=== PATIENT | female | born 1990 | race Hispanic/Latino ===

== ENCOUNTER 2019-03-19 19:58 | Outpatient (CLI) | payer OTHER ==
[2019-03-19 20:49] VITALS: BP 116/77
[2019-03-19] MEDS ORDERED: VISTARIL PO ONE (22:00)
== END 2019-03-19 21:29 | disposition home or self-care (01) ==
LOC: TRG 19:58
PROVIDERS: ATTEND Obstetrics & Gynecology
DX: O47.1 False labor at or after 37 completed weeks of gestation (principal); Z3A.38 38 weeks gestation of pregnancy; Z87.891 Personal history of nicotine dependence
CPT/HCPCS: Q0177

== ENCOUNTER 2019-03-21 09:55 | Inpatient (IN) | payer OTHER ==
[2019-03-21] MEDS ORDERED: BRETHINE IVP PRN (10:08)
[2019-03-21] MEDS ORDERED: MINERAL OIL PO PRN (10:08)
[2019-03-21] MEDS ORDERED: SUBLIMAZE IV PRN (10:08)
[2019-03-21] MEDS ORDERED: BRETHINE SUB-Q PRN (10:08)
[2019-03-21] MEDS ORDERED: XYLOCAINE 2% INFILTRATI ONE (10:08)
[2019-03-21] MEDS ORDERED: STADOL IV PRN (10:08)
[2019-03-21] MEDS ORDERED: ZOFRAN IV PRN (10:08)
[2019-03-21 10:39] LABS: Hematocrit 36.9 % (30.3-42.9); Hemoglobin 12.3 gm/dl (10.1-14.3); Mean Corpuscular HGB Conc 33 % (30-34); Mean Corpuscular Volume 93 fl (79-97); Platelet Count 273 K/mm3 (140-440); Red Blood Count 3.98 M/mm3 (3.65-5.03)
--- NOTE | 2019-03-21 10:42 | History and Physical Report ---
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 Infection History Hx of STD: none HIV Risk Eval: low risk Hepatitis B Risk Eval: low risk Personal hx. of genital herpes: no Partner hx. of genital herpes: no Rash, Viral, or Febrile illness since last LMP? no Varicella/Chicken Pox Status: Previous Disease Genetic History Congenital Heart Defect: Mom: no Dad: no Jo Disease: Mom: no Dad: no Thalassemia Mom: no Dad: no Neural Tube Defect Mom: no Dad: no Down's Syndrome Mom: no Dad: no Jacob-Sachs Mom: no Dad: no Sickle Cell Disease/Trait Mom: no Dad: no Hemophilia Mom: no Dad: no Muscular Dystrophy Mom: no Dad: no Cystic Fibrosis Mom: no Dad: no [place] Chorea Mom: no Dad: no Mental Retardation Mom: no Dad: no Fragile X Mom: no Dad: no Other Genetic/Chromosomal Disorder Mom: no Dad: no Child w/other defect Mom: no Dad: no Enviromental Exposures Xray Exposure: no Medication, drug, or alcohol use since LMP: no Chemical/Other Exposure: no Exposure to Cat Liter: yes Hx of Parvovirus (Fifth Disease): no Occupational Exposure to Children: none Active Medications (reviewed today): None Current Allergies (reviewed today): KEFLEX (Critical) Past History - Obstetrical History Expected Date of Delivery: 03/31/19 Actual Gestation: 38 Week(s) 4 Day(s) : 2 Para: 1 Hx # Term Pregnancies: 1 Number of Pregnancies: 0 Spontaneous Abortions: 0 Induced : 0 Number of Living Children: 1 Medications and Allergies Allergies Allergy/AdvReac Type Severity Reaction Status Date / Time sumatriptan [From Imitrex] Allergy Dizziness Verified 03/19/19 20:50 cephalexin [From Keflex] AdvReac Hives Verified 03/19/19 20:50 Active Meds: Active Medications Butorphanol Tartrate (Stadol) 2 mg IV Q2H PRN PRN Reason: Pain , Severe (7-10) Ephedrine Sulfate (Ephedrine Sulfate) 10 mg IV Q2M PRN PRN Reason: Hypotension Fentanyl (Sublimaze) 100 mcg IV Q2H PRN PRN Reason: Labor Pain Lactated Ringer's (Lactated Ringers) 1,000 mls @ 125 mls/hr IV DIRECT BEN Oxytocin/Sodium Chloride (Pitocin/Ns 20 Unit/1000ml Drip) 20 units in 1,000 mls @ 125 mls/hr IV DIRECT BEN Oxytocin/Sodium Chloride (Pitocin/Ns 30 Unit/500ml) 30 units in 500 mls @ 4 mls/hr IV Q30MIN BEN; Protocol Lidocaine (Xylocaine 2%) 20 ml INFILTRATI ONCE ONE Stop: 03/21/19 10:09 Mineral Oil (Mineral Oil) 30 ml PO QHS PRN PRN Reason: Constipation Ondansetron HCl (Zofran) 4 mg IV Q8H PRN PRN Reason: Nausea And Vomiting Terbutaline Sulfate (Brethine) 0.25 mg SUB-Q ONCE PRN PRN Reason: Hyperstimulation/Hypertonicity Terbutaline Sulfate (Brethine) 0.25 mg IVP ONCE PRN PRN Reason: Hyperstimulation/Hypertonicity - Vital Signs Vital signs: Vital Signs Pulse BP 84 127/79 03/21/19 10:26 03/21/19 10:26 Temp Pulse Resp BP Pulse Ox 98 F 84 20 127/79 03/21/19 10:27 03/21/19 10:26 03/21/19 10:27 03/21/19 10:26 - Physical Exam Breasts: Positive: deferred Cardiovascular: Regular rate Lungs: Positive: Normal air movement Abdomen: Positive: normal appearance, soft Genitourinary (Female): Positive: normal external genitalia Vagina: Positive: normal moisture Uterus: Positive: normal size Extremities: Positive: normal Deep Tendon Reflex Grade: Normal +2 - Obstetrical FHR: category 1 Uterine Contraction Monitor Mode: External Cervical Dilatation: 2.5 Cervical Effacement Percentage: 50 station: -1 Uterine Contraction Pattern: Irregular Uterine Tone Measurement Phase: Resting Uterine Contraction Intensity: Moderate Results All other labs normal. GBS negative HBsAg Screen Negative Negative *1 RPR Non Reactive Non Reactive *2 Rubella Antibodies, IgG 30.80 index Immune >0.99 *3 Non-immune <0.90 Equivocal 0.90 - 0.99 Immune >0.99 ABO Grouping A *4 Rh Factor Positive *5 Please note: Prior records for this patient's ABO / Rh type are not available for additional verification. Antibody Screen Negative Negative *6 WBC 6.5 x10E3/uL 3.4-10.8 *7 RBC 3.95 x10E6/uL 3.77-5.28 *8 Hemoglobin 12.8 g/dL 11.1-15.9 *9 Hematocrit 37.9 % 34.0-46.6 *10 MCV 96 fL 79-97 *11 MCH 32.4 pg 26.6-33.0 *12 MCHC 33.8 g/dL 31.5-35.7 *13 RDW 12.9 % 12.3-15.4 *14 Platelets 280 x10E3/uL 150-379 *15 Neutrophils 67 % Not Estab. *16 Lymphs 24 % Not Estab. *17 Monocytes 8 % Not Estab. *18 Eos 1 % Not Estab. *19 Basos 0 % Not Estab. *20 ! Immature Cells <No Reported Value> *21 Neutrophils (Absolute) 4.4 x10E3/uL 1.4-7.0 *22 Lymphs (Absolute) 1.5 x10E3/uL 0.7-3.1 *23 Monocytes(Absolute) 0.5 x10E3/uL 0.1-0.9 *24 Eos (Absolute) 0.1 x10E3/uL 0.0-0.4 *25 Baso (Absolute) 0.0 x10E3/uL 0.0-0.2 *26 ! Immature Granulocytes 0 % Not Estab. *27 ! Immature Grans (Abs) 0.0 x10E3/uL 0.0-0.1 *28 ! NRBC <No Reported Value> *29 Hematology Comments: <No Reported Value> *30 Tests: (2) Toxoplasma gondii Ab, IgG, Qn (257412) ! Toxoplasma gondii Ab,IgG,Qn <3.0 IU/mL 0.0-7.1 *31 Negative <7.2 Equivocal 7.2 - 8.7 Positive >8.7 Tests: (3) Panel [id number] ([id number]) HIV Screen 4th Generation wRfx Non Reactive Non Reactive *32 Tests: (4) HCV Ab w/Rflx to Verification ([id number]) ! HCV Ab <0.1 s/co ratio 0.0-0.9 *33 Tests: (5) Comment: ([id number]) ! Comment: SPR[facility] *34 Non reactive HCV antibody screen is consistent with no HCV infection, unless recent infection is suspected or other evidence exists to indicate HCV infection. Tests: (6) Urine Culture, Routine ([id number]) Urine Culture, Routine Final report *35 Tests: (7) Result ([id number]) ! Result 1 No growth *36 Assessment and Plan 28yo @ 38 weeks with ROM this AM @ 0800 clear fluid GBS negative Orders in EMR Anticipate delivery
[2019-03-21] MEDS ORDERED: PITOCin/NS 30 UNIT/500ML 30 UNITS/500 ML BAG IV SCH (11:00)
[2019-03-21] MEDS ORDERED: PITOCin/NS 20 UNIT/1000ML DRIP 20 UNITS/1,000 ML BAG IV SCH (11:00)
[2019-03-21] MEDS: LACTATED RINGERS 1,000 ML IV SCH ×4 (11:36→18:02)
[2019-03-21] MEDS ORDERED: NARCAN 2 MG/2 ML IV PRN (16:07)
--- NOTE | 2019-03-21 16:07 | Anesthesia Consultation ---
Anesthesia Consult and Med Hx Date of service: 03/21/19 - Airway Anesthetic Teeth Evaluation: Good ROM Head & Neck: Adequate Mental/Hyoid Distance: Adequate Mallampati Class: Class II Intubation Access Assessment: Good - Pulmonary Exam CTA: Yes - Cardiac Exam Cardiac Exam: No Murmur - Pre-Operative Health Status ASA Pre-Surgery Classification: ASA2 Proposed Anesthetic Plan: Epidural - Pulmonary Hx Asthma: No COPD: No Hx Pneumonia: No - Cardiovascular System Hx Hypertension: No - Central Nervous System Hx Seizures: Yes (Per pt, last sz in 2016. Not on any meds) Hx Psychiatric Problems: No - Endocrine Hx Renal Disease: No Hx End Stage Renal Disease: No Hx Hypothyroidism: No Hx Hyperthyroidism: No - Hematic Hx Anemia: No Hx Sickle Cell Disease: No - Other Systems Hx Alcohol Use: Yes (before 1st month of preg)
[2019-03-21] MEDS ORDERED: fentaNYL-BUPIV 2 MCG/ML-0.125% 200 MCG/100 ML BAG EPIDURAL SCH (17:00)
[2019-03-21] MEDS ORDERED: XYLOCAINE 2%/ EPI 1:200,000 INFILTRATI ONE (17:21)
--- NOTE | 2019-03-21 19:28 | Procedure Note ---
OB Delivery Note - Delivery Date of Delivery: 03/21/19 Surgeon: CHARITO JOE Estimated blood loss: other (400cc) - Vaginal Delivery presentation: vertex Delivery position: OA Intrapartum events: none Delivery induction: none Delivery augmentation: pitocin Delivery monitor: external FHT, external uterine Route of delivery: Delivery placenta: spontaneous Delivery cord: nuchal cord Episiotomy: none Delivery laceration: 2nd degree Delivery repair: vicryl Anesthesia: epidural - Infant A at 1 minute: 8 at 5 minutes: 9 Gender: Male (7lbs 4oz)
[2019-03-21] MEDS ORDERED: IBUPROFEN PO PRN (20:21)
[2019-03-21] MEDS ORDERED: IBUPROFEN ONE (20:23)
[2019-03-21] MEDS ORDERED: PHENERGAN PO PRN (21:24)
[2019-03-21] MEDS ORDERED: MILK OF MAGNESIA PO PRN (21:24)
[2019-03-21] MEDS ORDERED: BENADRYL PO PRN (21:24)
[2019-03-21] MEDS ORDERED: LANSINOH TP PRN (21:24)
[2019-03-21] MEDS ORDERED: SODIUM CHLORIDE FLUSH SYRINGE 10 ML IV SCH (21:24)
[2019-03-21] MEDS ORDERED: TYLENOL PO PRN (21:24)
[2019-03-21] MEDS ORDERED: DULCOLAX PR PRN (21:24)
[2019-03-21] MEDS ORDERED: DERMOPLAST TP PRN (21:28)
[2019-03-21] MEDS: COLACE PO SCH (21:58)
[2019-03-21] MEDS: NORCO 5/325 PO PRN (21:58)
[2019-03-21] MEDS: TUCKS PAD TP PRN (21:59)
[2019-03-22] MEDS: NORCO 5/325 PO PRN ×3 (04:11→16:35)
[2019-03-22] MEDS ORDERED: BOOSTRIX IM ONE (06:00)
--- NOTE | 2019-03-22 08:20 | Discharge Summary ---
Providers - Providers Date of Admission: 03/21/19 09:55 Date of discharge: 03/22/19 (desires d/c home this evening) Attending physician: MARC REYNOLDS 03/21/19 21:24 Consult to Client Delivery Specialist [CONS] Routine Reason For Exam: assistance with , SNS Primary care physician: MARC REYNOLDS Hospitalization Reason for admission: Labor Condition: Good Pertinent studies: H&H pending, no s/s anemia Procedures: Hospital course: uncomplicated and course. Disposition: DC- TO HOME OR SELFCARE - Discharge Diagnoses (1) (normal spontaneous vaginal delivery) Status: Acute Core Measure Documentation - Palliative Care Palliative Care/ Comfort Measures: Not Applicable - Core Measures Any of the following diagnoses?: none Exam - Constitutional Vitals: Temp Pulse Resp BP Pulse Ox 98.4 F 81 18 109/61 95 03/22/19 05:16 03/22/19 05:16 03/22/19 05:16 03/22/19 05:16 03/22/19 05:16 General appearance: Present: no acute distress, well-nourished - EENT Eyes: Present: PERRL ENT: hearing intact, clear oral mucosa - Neck Neck: Present: supple, normal ROM - Respiratory Respiratory effort: normal Respiratory: bilateral: CTA - Cardiovascular Heart Sounds: Present: S1 & S2. Absent: rub, click - Extremities Extremities: pulses symmetrical, No edema Peripheral Pulses: within normal limits - Abdominal General gastrointestinal: Present: soft, non-tender, non-distended, normal bowel sounds Female genitourinary: Present: normal - Integumentary Integumentary: Present: clear, warm, dry - Musculoskeletal Musculoskeletal: gait normal, strength equal bilaterally - Psychiatric Psychiatric: appropriate mood/affect, intact judgment & insight - Neurologic Neurologic: CNII-XII intact, moves all extremities - Additional findings Additional findings: fundus firm, lochia scant Plan Activity: no restrictions Diet: regular Follow up with: MARC REYNOLDS MD [Primary Care Provider] - 7 Days (Congratulations! Please call [phone] to schedule your son's circumcision in 1 week and your visit in 4 weeks. Bring EMLA cream to your son's visit and await teaching. Call for any quesitons or concerns.)
[2019-03-22 09:28] LABS: Hemoglobin 10.1 gm/dl (10.1-14.3)
[2019-03-22] MEDS ORDERED: PRENATAL VITAMIN PO SCH (10:00)
[2019-03-22] MEDS: IBUPROFEN PO SCH ×2 (10:12→16:36)
[2019-03-22] MEDS: COLACE PO SCH (10:14)
[2019-03-22 10:15] LABS: Hematocrit 30.3 % (30.3-42.9)
[2019-03-22] MEDS: TUCKS PAD TP PRN (10:25)
[2019-03-22] MEDS ORDERED: AFLURIA QUAD 2018-2019 SYRINGE IM ONE (12:00)
[2019-03-22 22:48] VITALS: BP 125/79
== END 2019-03-22 20:50 | disposition home or self-care (01) | DRG 775 ==
LOC: LD 09:55 → OB 21:02
PROVIDERS: ADMIT Obstetrics & Gynecology; ATTEND Obstetrics & Gynecology
PROC: 10E0XZZ Delivery of Products of Conception, External Approach (ICD-10-PCS; principal; 2019-03-21)
PROC: 0KQM0ZZ Repair Perineum Muscle, Open Approach (ICD-10-PCS; 2019-03-21)
PROC: 3E0R3BZ Introduction of Anesthetic Agent into Spinal Canal, Percutaneous Approach (ICD-10-PCS; 2019-03-21)
PROC: 00HU33Z Insertion of Infusion Device into Spinal Canal, Percutaneous Approach (ICD-10-PCS; 2019-03-21)
DX: O69.81X0 Labor and delivery complicated by cord around neck, without compression, not applicable or unspecified (principal); O99.314 Alcohol use complicating childbirth; O70.1 Second degree perineal laceration during delivery; Z3A.38 38 weeks gestation of pregnancy; Z37.0 Single live birth; Z72.89 Other problems related to lifestyle; Z90.49 Acquired absence of other specified parts of digestive tract
CPT/HCPCS: 36415; 85014; 85018; 85027; 86592; 86850; 86900; 86901; 90471; 90686; 90715; 96374; G0378; A6250; J0595; J2405; J2590; J3010; J7120; Q0177